=== PATIENT | male | born 1980 | race Hispanic/Latino ===

== ENCOUNTER 2025-06-13 16:51 | Emergency (ER) | payer BC ==
[~2025-06-13] VITALS: Ht 175.3 cm; Wt 113.5 kg
[2025-06-13 17:09] VITALS: TEMP 99
[2025-06-13] MEDS ORDERED: TYLENOL325 MG PO (17:47)
[2025-06-13] MEDS: ACETAMINOPHEN 325 MG TAB PO ONE (17:53)
[2025-06-13] MEDS: KETOROLAC TROMETHAMINE 30 MG/ML VIAL IV ONE (17:53)
[2025-06-13 18:10] VITALS: PULSE 85; RESP 13; O2SAT 98
== END 2025-06-13 18:20 | disposition home or self-care (01) ==
LOC: FSED 17:05
DX: M79.602 Pain in left arm (principal); R07.89 Other chest pain; R73.9 Hyperglycemia, unspecified; I10 Essential (primary) hypertension; E66.9 Obesity, unspecified
CPT/HCPCS: 71046; 80053; 84484; 85025; 85379; 93005; 96374; 99284; J1885